=== PATIENT | female | born 1955 | race Two or more races ===

== ENCOUNTER 2017-06-15 17:15 | Emergency (ER) | payer SELFPAY ==
[2017-06-15] MEDS ORDERED: ONDANSETRON 4 MG TAB.RAPDIS PO ONE (17:32)
--- NOTE | 2017-06-15 17:35 | ER Document Report ---
ED Medical Screen (RME) - General Chief Complaint: Abdominal Pain Stated Complaint: NAUSEA Time Seen by Provider: 06/15/17 17:28 Notes: The patient is a 61-year-old female, recently diagnosed with left inguinal hernia, diverticulitis and cholelithiasis and in the ER in [place] 3 days ago, presents with worsening left lower quadrant abdominal pain and nausea. She was taking Phenergan and tramadol and said that they were helping, but she ran out. She has now moved to [place] [employer], but has not established follow-up at surgery yet. PE: Tachycardia, mild distress, LLQ abdominal pain, unable to assess inguinal hernia in [place] I have greeted and performed a rapid initial assessment of this patient. A comprehensive ED assessment and evaluation of the patient, analysis of test results and completion of the medical decision making process will be conducted by additional ED providers. TRAVEL OUTSIDE OF THE [place] IN LAST 30 DAYS: No - Related Data Allergies/Adverse Reactions: hydrocodone Allergy (Verified 06/15/17 17:24) Facial swelling catrina Allergy (Verified 06/15/17 17:24) throat swelling Home Medications: Current Home Medications Aspirin [Aspirin 81 mg Chewable Tablet] 81 mg PO DAILY 06/15/17 [History] [place] Carbonate 300 mg PO DAILY 06/15/17 [History] Promethazine HCl [Phenadoz] 25 mg RC PRN PRN 06/15/17 [History] Risperidone [Risperdal] 3 mg PO QPM 06/15/17 [History] Tramadol HCl 50 mg PO PRN PRN 06/15/17 [History] Past Medical History Renal/ Medical History: Denies: Hx Peritoneal Dialysis Physical Exam - Vital signs Vitals: Temp Pulse Resp BP Pulse Ox 97.9 F 113 H 18 160/90 H 96 06/15/17 17:20 06/15/17 17:20 06/15/17 17:20 06/15/17 17:20 06/15/17 17:20 Course - Vital Signs Vital signs: Temp Pulse Resp BP Pulse Ox 97.9 F 113 H 18 160/90 H 96 06/15/17 17:20 06/15/17 17:20 06/15/17 17:20 06/15/17 17:20 06/15/17 17:20
[2017-06-15 18:03] LABS: ABSOLUTE BASOPHILS # (AUTO) 0.1 10^3/uL (0.0-0.2); ABSOLUTE EOSINOPHILS # (AUTO) 0.1 10^3/uL (0.0-0.6); ABSOLUTE LYMPHOCYTES (AUTO) 1.6 10^3/uL (0.5-4.7); ABSOLUTE MONOCYTES (AUTO) 0.4 10^3/uL (0.1-1.4); ABSOLUTE NEUT (AUTO) 5.3 10^3/uL (1.7-8.2); BASOPHILS % (AUTO) 1.2 % (0-2); EOSINOPHILS % (AUTO) 1.4 % (0-6); HEMATOCRIT 36.9 % (36.0-47.0); HEMOGLOBIN 12.5 g/dL (12.0-15.5); HGB HCT DIFFERENCE 0.6; LYMPHOCYTES % (AUTO) 21.6 % (13-45); MEAN CORPUSCULAR HEMOGLOBIN 28.9 pg (27.0-33.4); MEAN CORPUSCULAR HGB CONC 33.9 g/dL (32.0-36.0); MEAN CORPUSCULAR VOLUME 85 fl (80-97); MONOCYTES % (AUTO) 5.4 % (3-13); RED BLOOD COUNT 4.33 10^6/uL (3.72-5.28); RED CELL DISTRIBUTION WIDTH 14.1 % (11.5-14.0); SEGMENTED NEUTROPHILS % (AUTO) 70.4 % (42-78); WHITE BLOOD COUNT 7.5 10^3/uL (4.0-10.5)
[2017-06-15 18:10] LABS: APPEARANCE,URINE CLEAR; BILIRUBIN,URINE NEGATIVE (NEGATIVE); GLUCOSE, URINE NEGATIVE (NEGATIVE); KETONES,URINE NEGATIVE (NEGATIVE); LEUKOCYTE ESTERASE,URINE NEGATIVE (NEGATIVE); NITRITE,URINE NEGATIVE (NEGATIVE); PROTEIN,URINE NEGATIVE (NEGATIVE); URINE SPECIFIC GRAVITY 1.003; UROBILINOGEN,URINE NEGATIVE mg/dL (<2.0)
[2017-06-15] MEDS ORDERED: OXYCODONE-ACETAMINOPHEN 5-325 MG TABLET PO ONE (18:20)
[2017-06-15 18:23] LABS: ALANINE AMINOTRANSFERASE 40 U/L (9-52); ALBUMIN 4.2 g/dL (3.5-5.0); ALKALINE PHOSPHATASE 110 U/L (38-126); ANION GAP 13 (5-19); ASPARTATE AMINO TRANSFERASE 37 U/L (14-36); BILIRUBIN,DIRECT 0.4 mg/dL (0.0-0.4); BILIRUBIN,TOTAL 0.5 mg/dL (0.2-1.3); BLOOD UREA NITROGEN 7 mg/dL (7-20); CALCIUM 10.5 mg/dL (8.4-10.2); CARBON DIOXIDE 23 mmol/L (22-30); CHLORIDE 103 mmol/L (98-107); CREATININE RESULT 0.64 mg/dL (0.52-1.25); GLUCOSE 153 mg/dL (75-110); LIPASE 85.9 U/L (23-300); POTASSIUM 3.5 mmol/L (3.6-5.0); SODIUM 138.7 mmol/L (137-145); TOTAL PROTEIN 7.2 g/dL (6.3-8.2)
--- NOTE | 2017-06-15 18:25 | ER Document Report ---
ED General - General Chief Complaint: Abdominal Pain Stated Complaint: NAUSEA Time Seen by Provider: 06/15/17 17:28 Mode of Arrival: Ambulatory Information source: Patient Notes: 61-year-old female who was diagnosed with gallbladder disease last week in [place] as well as a history of right flank pain presents with complaints of generalized abd pain . pt denies any fevers or chills, denies any constipation. TRAVEL OUTSIDE OF THE [place] IN LAST 30 DAYS: No - HPI Onset: Last week Onset/Duration: Persistent Quality of pain: Achy Severity: Mild Pain Level: 1 Associated symptoms: Nausea Exacerbated by: Denies Relieved by: Denies Similar symptoms previously: No Recently seen / treated by doctor: No - Related Data Allergies/Adverse Reactions: hydrocodone Allergy (Verified 06/15/17 17:24) Facial swelling catrina Allergy (Verified 06/15/17 17:24) throat swelling Home Medications: Current Home Medications Aspirin [Aspirin 81 mg Chewable Tablet] 81 mg PO DAILY 06/15/17 [History] [place] Carbonate 300 mg PO DAILY 06/15/17 [History] Promethazine HCl [Phenadoz] 25 mg RC PRN PRN 06/15/17 [History] Risperidone [Risperdal] 3 mg PO QPM 06/15/17 [History] Tramadol HCl 50 mg PO PRN PRN 06/15/17 [History] Past Medical History - Social History Smoking Status: Never Smoker Cigarette use (# per day): No Chew tobacco use (# tins/day): No Smoking Education Provided: No Family History: Reviewed & Not Pertinent Renal/ Medical History: Denies: Hx Peritoneal Dialysis Review of Systems - Review of Systems Notes: REVIEW OF SYSTEMS: CONSTITUTIONAL : Denies fever, chills, or sweats. Denies recent illness. EENT: Denies eye, ear, throat, or mouth pain or symptoms. Denies nasal or sinus congestion or discharge. Denies throat, tongue, or mouth swelling or difficulty swallowing. CARDIOVASCULAR: Denies chest pain. Denies palpitations or racing or irregular heart beat. Denies ankle edema. RESPIRATORY: Denies cough, cold, or chest congestion. Denies shortness of breath, difficulty breathing, or wheezing. GASTROINTESTINAL: admits to nausea vomiting, abd pain pain GENITOURINARY: Denies difficulty urinating, painful urination, burning, frequency, blood in urine, or discharge. FEMALE GENITOURINARY: Denies vaginal bleeding, heavy or abnormal periods, irregular periods. Denies vaginal discharge or odor. MUSCULOSKELETAL: Denies back or neck pain or stiffness. Denies joint pain or swelling. SKIN: Denies rash, lesions or sores. HEMATOLOGIC : Denies easy bruising or bleeding. LYMPHATIC: Denies swollen, enlarged glands. NEUROLOGICAL: Denies confusion or altered mental status. Denies passing out or loss of consciousness. Denies dizziness or lightheadedness. Denies headache. Denies weakness or paralysis or loss of use of either side. Denies problems with gait or speech. Denies sensory loss, numbness, or tingling. Denies seizures. PSYCHIATRIC: Denies anxiety or stress. Denies depression, suicidal ideation, or homicidal ideation. ALL OTHER SYSTEMS REVIEWED AND NEGATIVE. PHYSICAL EXAMINATION: GENERAL: Well-appearing, well-nourished and in no acute distress. HEAD: Atraumatic, normocephalic. EYES: Pupils equal round and reactive to light, extraocular movements intact, conjunctiva are normal. ENT: Nares patent, oropharynx clear without exudates. Moist mucous membranes. NECK: Normal range of motion, supple without lymphadenopathy LUNGS: Breath sounds clear to auscultation bilaterally and equal. No wheezes rales or rhonchi. HEART: Regular rate and rhythm without murmurs ABDOMEN: Soft, nontender, nondistended abdomen. No guarding, no rebound. Right inguinal hernia Female : deferred Musculoskeletal: Normal range of motion, no pitting or edema. No cyanosis. NEUROLOGICAL: Cranial nerves grossly intact. Normal speech, normal gait. Normal sensory, motor exams PSYCH: Normal mood, normal affect. SKIN: Warm, Dry, normal turgor, no rashes or lesions noted. Dictation was performed using [employer] voice recognition software Physical Exam - Vital signs Vitals: Temp Pulse Resp BP Pulse Ox 97.9 F 113 H 18 160/90 H 96 06/15/17 17:20 06/15/17 17:20 06/15/17 17:20 06/15/17 17:20 06/15/17 17:20 Course - Re-evaluation Re-evalutation: 06/15/17 18:24 Patient has very benign presentation, she is supposed to follow-up with surgery. Denies any fevers or chills 06/15/17 19:39 Labwork imaging noted no abnormality. Patient is stable at this time Patient will be given surgery follow-up After performing a Medical Screening Examination, I estimate there is LOW risk for ACUTE APPENDICITIS, BOWEL OBSTRUCTION, ACUTE CHOLECYSTITIS, PERFORATED DIVERTICULITIS, INCARCERATED HERNIA, PANCREATITIS, PELVIC INFLAMMATORY DISEASE, PERFORATED ULCER, ECTOPIC , or TUBO-OVARIAN ABSCESS, thus I consider the discharge disposition reasonable. Also, there is no evidence or peritonitis , sepsis, or toxicity. I have reevaluated this patient multiple times and no significant life threatening changes are noted. The patient and I have discussed the diagnosis and risks, and we agree with discharging home with close follow-up with the understanding that symptoms and presentations can change. We also discussed returning to the Emergency Department immediately if new or worsening symptoms occur. We have discussed the symptoms which are most concerning (e.g., bloody stool, fever, changing or worsening pain, vomiting) that necessitate immediate return. - Vital Signs Vital signs: Temp Pulse Resp BP Pulse Ox 97.9 F 113 H 18 160/90 H 96 06/15/17 17:20 06/15/17 17:20 06/15/17 19:29 06/15/17 17:20 06/15/17 17:20 - Laboratory Result Diagrams: 06/15/17 17:50 06/15/17 17:50 Laboratory results interpreted by me: 06/15/17 06/15/17 06/15/17 17:45 17:50 17:50 RDW 14.1 H Potassium 3.5 L Glucose 153 H Calcium 10.5 H AST 37 H Urine Blood SMALL H - Diagnostic Test Radiology reviewed: Image reviewed, Reports reviewed - no Acute abnormality Discharge - Discharge Clinical Impression: Abdominal pain Qualifiers: Abdominal location: generalized Qualified Code(s): R10.84 - Generalized abdominal pain Inguinal hernia Qualifiers: Obstruction and gangrene presence: without obstruction or gangrene Laterality: unilateral Recurrence: recurrent Qualified Code(s): K40.91 - Unilateral inguinal hernia, without obstruction or gangrene, recurrent Condition: Stable Disposition: HOME, SELF-CARE Instructions: Abdominal Pain ([facility]) Prescriptions: Tramadol HCl 50 mg PO Q8 #20 tablet Referrals: MEMO SUAREZ MD [ACTIVE STAFF] - Follow up tomorrow
[2017-06-15] MEDS ORDERED: TRAMADOL HCL 50 MG TABLET PO ONE (18:31)
--- NOTE | 2017-06-15 19:19 | RADIOLOGY REPORT (SQ) ---
EXAM DESCRIPTION: ACUTE ABDOMEN SERIES COMPLETED DATE/TIME: 06/15/2017 7:10 pm REASON FOR STUDY: right inguinal hernia COMPARISON: None. NUMBER OF VIEWS: Three views. TECHNIQUE: Frontal chest, supine abdomen and upright/decubitus abdomen radiographic images acquired. LIMITATIONS: None. FINDINGS: CHEST: Lungs clear of infiltrates. FREE AIR: None. No abnormal gas collections. BOWEL GAS PATTERN: Nonobstructive pattern. No dilated loops or air fluid levels. CALCIFICATIONS: No suspicious calcifications. HARDWARE: None in the abdomen. SOFT TISSUES: No gross mass or suggestion of organomegaly. BONES: No acute fracture. No worrisome bone lesions. OTHER: No other significant finding. IMPRESSION: NO RADIOGRAPHIC EVIDENCE FOR ACUTE ABDOMINAL DISEASE. TECHNICAL DOCUMENTATION: JOB ID: [id number] [employer]- All Rights Reserved
[2017-06-15 19:47] VITALS: BP 110/78
== END 2017-06-15 19:57 | disposition home or self-care (01) ==
LOC: ER 17:15
DX: K40.91 Unilateral inguinal hernia, without obstruction or gangrene, recurrent (principal); R10.84 Generalized abdominal pain
CPT/HCPCS: 99284; 36415; 83690; 85025; 80053; 81001; 74022; S0119

== ENCOUNTER 2017-06-23 17:02 | Emergency (ER) | payer SELFPAY ==
--- NOTE | 2017-06-23 17:33 | ER Document Report ---
ED GI/ - General Chief Complaint: Groin Pain Stated Complaint: PAIN IN GROIN AREA Time Seen by Provider: 06/23/17 17:18 Notes: Patient is a 61-year-old female who presents emergency department complaining of hernia pain. Patient states that she was seen in [facility] in March and told that she had a hernia near her vagina. Patient states that she has intermittent pain. Has been taking tramadol at home. Denies any nausea, vomiting, diarrhea, constipation. She states that the hernia is reducible. TRAVEL OUTSIDE OF THE [place] IN LAST 30 DAYS: No - Related Data Allergies/Adverse Reactions: hydrocodone Allergy (Verified 06/23/17 17:10) Facial swelling catrina Allergy (Verified 06/23/17 17:10) throat swelling Past Medical History - Social History Smoking Status: Unknown if Ever Smoked Family History: Reviewed & Not Pertinent Patient has suicidal ideation: No Patient has homicidal ideation: No Renal/ Medical History: Denies: Hx Peritoneal Dialysis Psychiatric Medical History: Reports: Hx Bipolar Disorder Review of Systems - Review of Systems Constitutional: No symptoms reported Gastrointestinal: See HPI -: Yes All other systems reviewed and negative Physical Exam - Vital signs Vitals: Temp Pulse BP Pulse Ox 98.4 F 73 111/59 L 94 06/23/17 17:09 06/23/17 17:09 06/23/17 17:09 06/23/17 17:09 - Notes Notes: PHYSICAL EXAM GENERAL: Alert, interacts well. HEAD: Normocephalic, atraumatic. EYES: Pupils equal, round, and reactive to light. Extraocular movements intact. ENT: Oral mucosa moist, tongue midline. NECK: Full range of motion. Supple. Trachea midline. LUNGS: Clear to auscultation bilaterally, no wheezes, rales, or rhonchi. No respiratory distress. HEART: Regular rate and rhythm. No murmurs, gallops, or rubs. ABDOMEN: Soft, nondistended, nontender. No guarding, rebound, or rigidity.. Bowel sounds present in all 4 quadrants. No evidence of umbilical, inguinal, femoral hernia. Patient pointing to right inguinal canal in terms of pain where she states it is normally where the bump is but no palpable hernia. No concern for incarcerated hernia EXTREMITIES: Moves all 4 extremities spontaneously. No edema, radial and dorsalis pedis pulses 2/4 bilaterally. No cyanosis. NEUROLOGICAL: Alert and oriented x4. Normal speech. PSYCH: Normal affect, normal mood. SKIN: Warm, dry, normal turgor. No rashes or lesions noted. Course - Re-evaluation Re-evalutation: 06/23/17 18:39 Patient is a 61-year-old female is hemodynamic stable, no acute distress afebrile. No concerns for incarcerated hernia at this time. Patient's physical exam is benign for any acute abdominal process. Stable for discharge home and referral to surgery After performing a Medical Screening Examination, I estimate there is LOW risk for ACUTE APPENDICITIS, BOWEL OBSTRUCTION, ACUTE CHOLECYSTITIS, PERFORATED DIVERTICULITIS, INCARCERATED HERNIA, PANCREATITIS, PELVIC INFLAMMATORY DISEASE, PERFORATED ULCER, ECTOPIC , or TUBO-OVARIAN ABSCESS, thus I consider the discharge disposition reasonable. Also, there is no evidence or peritonitis , sepsis, or toxicity. I have reevaluated this patient multiple times and no significant life threatening changes are noted. The patient and I have discussed the diagnosis and risks, and we agree with discharging home with close follow-up with the understanding that symptoms and presentations can change. We also discussed returning to the Emergency Department immediately if new or worsening symptoms occur. We have discussed the symptoms which are most concerning (e.g., bloody stool, fever, changing or worsening pain, vomiting) that necessitate immediate return. - Vital Signs Vital signs: Temp Pulse Resp BP Pulse Ox 98.4 F 68 16 111/61 98 06/23/17 17:37 06/23/17 17:37 06/23/17 17:37 06/23/17 17:37 06/23/17 17:37 Discharge - Discharge Clinical Impression: Groin pain Qualifiers: Laterality: right Qualified Code(s): R10.31 - Right lower quadrant pain Condition: Good Disposition: HOME, SELF-CARE Instructions: Hernia ([facility]) Prescriptions: Ondansetron HCl [Zofran 4 mg Tablet] 1 - 2 tab PO Q4H PRN #10 tablet PRN Reason: Referrals: MEMO SUAREZ MD [ACTIVE STAFF] - Follow up in 1 week
[2017-06-23 17:42] VITALS: BP 111/61
== END 2017-06-23 17:40 | disposition home or self-care (01) ==
LOC: ER 17:02
DX: R10.31 Right lower quadrant pain (principal); Z88.5 Allergy status to narcotic agent; Z91.018 Allergy to other foods
CPT/HCPCS: 99283

== ENCOUNTER → 2017-08-15 | Outpatient (CLI) | payer OTHER ==
[2017-08-15 09:39] LABS: ALANINE AMINOTRANSFERASE 36 U/L (9-52); ALBUMIN 4.4 g/dL (3.5-5.0); ALKALINE PHOSPHATASE 104 U/L (38-126); ANION GAP 11 (5-19); ASPARTATE AMINO TRANSFERASE 22 U/L (14-36); BILIRUBIN,DIRECT 0.4 mg/dL (0.0-0.4); BILIRUBIN,TOTAL 0.8 mg/dL (0.2-1.3); BLOOD UREA NITROGEN 15 mg/dL (7-20); CALCIUM 10.4 mg/dL (8.4-10.2); CARBON DIOXIDE 25 mmol/L (22-30); CHLORIDE 109 mmol/L (98-107); CHOLESTEROL 264.92 mg/dL (0-200); CREATININE RESULT 0.75 mg/dL (0.52-1.25); Direct HDL 47 mg/dL (>40); GLUCOSE 143 mg/dL (75-110); POTASSIUM 4.3 mmol/L (3.6-5.0); SODIUM 145.4 mmol/L (137-145); TOTAL PROTEIN 7.4 g/dL (6.3-8.2); TRIGLYCERIDES 161 mg/dL (<150)
[2017-08-15 09:50] LABS: DIRECT LDL 191 mg/dL (<100)
[2017-08-15 09:53] LABS: VLDL CHOLESTEROL 32.2 mg/dL (10-31)
== END ==
LOC: OD 08:29
DX: K80.71 Calculus of gallbladder and bile duct without cholecystitis with obstruction (principal)
CPT/HCPCS: 36415; 80053; 80061; 83036; 84436

== ENCOUNTER → 2017-08-21 | Outpatient (CLI) | payer OTHER ==
--- NOTE | 2017-08-21 15:11 | WOMENS IMAGING REPORT ---
EXAM DESCRIPTION: BILAT SCREENING MAMMO W/CAD COMPLETED DATE/TIME: 08/21/2017 2:55 pm REASON FOR STUDY: SCREENING MAMMO Z12.31 ENCNTR SCREEN MAMMOGRAM FOR MALIGNANT NEOPLASM OF CHRISTIAN K80. 71 CALCULUS OF GB AND BILE DUCT W/O CHOLECYST W OBSTRUCT COMPARISON: None. TECHNIQUE: Standard craniocaudal and mediolateral oblique views of each breast recorded using digita l acquisition. LIMITATIONS: None. FINDINGS: RIGHT BREAST MASSES: Several circumscribed masses in the upper-outer breast generally similar in size and appearan ce, possibly lymph nodes. In the retroareolar breast there is an oval mass located 3 cm from the nip ple, partially obscured by parenchyma. CALCIFICATIONS: No new or suspicious calcifications. ARCHITECTURAL DISTORTION: None. DEVELOPING DENSITY: None. ASYMMETRY: None noted. OTHER: No other significant findings. LEFT BREAST MASSES: Several circumscribed masses in the upper-outer breast generally similar in size in appearanc e, possibly lymph nodes. CALCIFICATIONS: No new or suspicious calcifications. ARCHITECTURAL DISTORTION: Area of possible architectural distortion in the superior breast, most appa rent on the MLO view, located 5.5 cm from the nipple. DEVELOPING DENSITY: None. ASYMMETRY: None noted. OTHER: No other significant findings. Read with the assistance of CAD. .[facility] - R2 Cenova Version 1.3 .[facility] Imaging - R2 Cenova Version 1.3 .[facility] Imaging - R2 Cenova Version 2.4 .[facility] [place] - R2 Cenova Version 2.4 .[facility] - R2 [employer] Winding Machine Tender Version 9.2 IMPRESSION: Oval mass in the right breast. Possible area of architectural distortion in the left br east. BREAST DENSITY: b. There are scattered areas of fibroglandular density. BIRAD: 0 Incomplete: Needs Additional Imaging Evaluation and/or prior Mammograms for Comparison. RECOMMENDATION: RECOMMENDED FOLLOW-UP: Recommend additional evaluation with breast tomosynthesis (pr eferred) or compression views of both breasts and ultrasound of both breasts. The patient will be contacted for additional imaging. COMMENT: The patient has been notified of the results by letter per [place] requirements. Additional no tification policies are in place for contacting patient with suspicious or incomplete findings. Quality ID #[id number]: The [employer] recommends an annual screening mammogram for women aged 40 years or over. This facility utilizes a reminder system to ensure that all patients receive reminder letters, and/or direct phone calls for appointments. This includes reminders for routine scr eening mammograms, diagnostic mammograms, or other Breast Imaging Interventions when appropriate. Th is patient will be placed in the appropriate reminder system. The [employer] (ACR) has developed recommendations for screening MRI of the breast s in certain patient populations, to be used in conjunction with mammography. Breast MRI surveillanc e may be appropriate for women with more than 20% lifetime risk of developing breast cancer as deter mined by genetic testing, significant family history of the disease, or history of mantle radiation f or Hodgkins Disease. ACR Practice Guidelines 2008. TECHNICAL DOCUMENTATION: FINDING NUMBER: (1) ASSESSMENT: (1) JOB ID: [id number] [employer]- All Rights Reserved
== END ==
LOC: WI 13:29
DX: Z12.31 Encounter for screening mammogram for malignant neoplasm of breast (principal)
CPT/HCPCS: 77067; G0202

== ENCOUNTER → 2017-11-20 | Outpatient (CLI) | payer OTHER ==
--- NOTE | 2017-11-20 11:57 | WOMENS IMAGING REPORT ---
EXAM DESCRIPTION: BILAT DIAGNOSTIC MAMMO W/CAD; U/S BREAST UNILAT LIMITED COMPLETED DATE/TIME: 11/20/2017 9:40 am; 11/20/2017 11:30 am REASON FOR STUDY: LUMP IN RIGHT BREAST AND LEFT BREAST N63.0; BILATERAL BREAST N63.0 N63.10 UNSPECI FIED LUMP IN THE RIGHT BREAST, UNSPECIFIED DIANA N63.20 UNSPECIFIED LUMP IN THE LEFT BREAST, UNSPECIFI ED QUAD COMPARISON: 08/21/2017. TECHNIQUE: Additional true lateral and spot compression MLO and CC images of both breasts. LIMITATIONS: None. FINDINGS: RIGHT BREAST MASSES: Several scattered circumscribed masses. CALCIFICATIONS: No new or suspicious calcifications. ARCHITECTURAL DISTORTION: None. DEVELOPING DENSITY: None. ASYMMETRY: None noted. OTHER: No other significant findings. LEFT BREAST MASSES: Several scattered circumscribed masses. CALCIFICATIONS: No new or suspicious calcifications. ARCHITECTURAL DISTORTION: None. DEVELOPING DENSITY: None. ASYMMETRY: None noted. OTHER: No other significant findings. BREAST ULTRASOUND: TECHNIQUE: Static and dynamic grayscale images acquired of the right and left breast in the specific areas of clinical/mammographic concern. Selected color Doppler images recorded. ELASTOGRAPHY PERFORMED: No. LIMITATIONS: None. FINDINGS: MASS: There are several anechoic cysts in both breasts. Also a few small, 3 to 7 mm, circumscribed l ymph nodes. No suspicious solid lesions. ELASTOGRAPHY CHARACTERISTICS: Not applicable. OTHER: No other significant finding. IMPRESSION: Several circumscribed masses in both breasts. Ultrasound demonstrates scattered small c ysts and small lymph nodes. No suspicious mammographic or sonographic characteristics. BREAST DENSITY: b. There are scattered areas of fibroglandular density. BIRAD: 2 Benign findings. RECOMMENDATION: RECOMMENDED FOLLOW UP: Birads 1 or 2: The patient should resume routine screening . SPECIFIC INTERVENTION/IMAGING/CONSULTATION RECOMMENDED:No additional intervention/ imaging/consultati on needed at this time. COMMUNICATION:The imaging findings were not discussed with the patient. Her referring provider has be en notified of the findings. COMMENT: The patient has been notified of the results by letter per MQSA requirements. Additional no tification policies are in place for contacting patient with suspicious or incomplete findings. Quality ID #[id number]: The [employer] recommends an annual screening mammogram for women aged 40 years or over. This facility utilizes a reminder system to ensure that all patients receive reminder letters, and/or direct phone calls for appointments. This includes reminders for routine scr eening mammograms, diagnostic mammograms, or other Breast Imaging Interventions when appropriate. Th is patient will be placed in the appropriate reminder system. The [employer] (ACR) has developed recommendations for screening MRI of the breast s in certain patient populations, to be used in conjunction with mammography. Breast MRI surveillanc e may be appropriate for women with more than 20% lifetime risk of developing breast cancer as deter mined by genetic testing, significant family history of the disease, or history of mantle radiation f or Hodgkins Disease. ACR Practice Guidelines 2008. TECHNICAL DOCUMENTATION: FINDING NUMBER: (1) ASSESSMENT: (1) JOB ID: [id number] [employer]- All Rights Reserved
== END ==
LOC: WI 08:08
DX: N60.02 Solitary cyst of left breast (principal); N60.01 Solitary cyst of right breast
CPT/HCPCS: 76642; 77066

== ENCOUNTER → 2018-06-18 | Outpatient (CLI) | payer OTHER ==
--- NOTE | 2018-06-18 11:11 | RADIOLOGY REPORT (SQ) ---
EXAM DESCRIPTION: U/S ABDOMEN LIMITED W/O DOP COMPLETED DATE/TIME: 06/18/2018 9:40 am REASON FOR STUDY: TOXIC LIVER DISEASE W/ CHOLESTASIS K71.0 TOXIC LIVER DISEASE WITH CHOLESTASIS COMPARISON: None. TECHNIQUE: Dynamic and static grayscale images acquired of the abdomen and recorded on PACS. Additio nal selected color Doppler and spectral images recorded. LIMITATIONS: None. FINDINGS: PANCREAS: No masses. Visualized pancreatic duct normal caliber. LIVER: Right lobe is elongated. No hepatic mass. Normal echotexture. LIVER VASCULATURE: Normal directional flow of the main portal vein and hepatic veins. GALLBLADDER: Contracted gallbladder with large gallstones. ULTRASOUND-DETECTED ROBINS'S SIGN: Negative. INTRAHEPATIC DUCTS AND COMMON DUCT: Common bile duct is borderline at 6.1 mm. INFERIOR VENA CAVA: Normal flow. AORTA: No aneurysm. RIGHT KIDNEY: Normal size. Normal echogenicity. No solid or suspicious masses. No hydronephrosis. No calcifications. PERITONEAL AND RIGHT PLEURAL SPACE: No ascites or effusions. OTHER: A right inguinal hernia was noted. IMPRESSION: Angie's lobe in the liver. Cholelithiasis. Borderline common bile duct. Right inguin al hernia. TECHNICAL DOCUMENTATION: JOB ID: [id number] [employer]- All Rights Reserved Reading location - IP/workstation name: [email or web address]
== END ==
LOC: RAD 08:29
PROVIDERS: ATTEND Family Medicine
DX: K71.0 Toxic liver disease with cholestasis (principal)
CPT/HCPCS: 76705

== ENCOUNTER → 2020-08-28 | Outpatient (CLI) | payer OTHER | LOC: CCC 10:39 | PROVIDERS: ATTEND Family Medicine | DX: Z13.9 Encounter for screening, unspecified (principal) | CPT/HCPCS: 36415; 84075 ==

== ENCOUNTER → 2020-09-11 | Outpatient (CLI) | payer OTHER ==
[2020-09-11 15:01] LABS: ALBUMIN 4.4 g/dL (3.5-5.0); ALKALINE PHOSPHATASE 340 U/L (38-126); ANION GAP 13 (5-19); ASPARTATE AMINO TRANSFERASE 77 U/L (14-36); BILIRUBIN,DIRECT 0.2 mg/dL (0.0-0.4); BLOOD UREA NITROGEN 11 mg/dL (7-20); CALCIUM 10.8 mg/dL (8.4-10.2); CARBON DIOXIDE 22 mmol/L (22-30); CHLORIDE 105 mmol/L (98-107); CHOLESTEROL 146.55 mg/dL (0-200); GLUCOSE 105 mg/dL (75-110); POTASSIUM 4.4 mmol/L (3.6-5.0); TOTAL PROTEIN 7.7 g/dL (6.3-8.2); TRIGLYCERIDES 137 mg/dL (<150)
[2020-09-11 15:13] LABS: DIRECT LDL 62 mg/dL (<100)
== END ==
LOC: CCC 12:45
PROVIDERS: ATTEND Family Medicine
DX: K80.71 Calculus of gallbladder and bile duct without cholecystitis with obstruction (principal)
CPT/HCPCS: 36415; 80053; 80061; 83036; 84436

== ENCOUNTER → 2020-09-11 | Outpatient (CLI) | payer OTHER ==
--- NOTE | 2020-09-11 10:59 | RADIOLOGY REPORT (SQ) ---
EXAM DESCRIPTION: U/S ABDOMEN LIMITED W/O DOP IMAGES COMPLETED DATE/TIME: 09/11/2020 9:12 am REASON FOR STUDY: K71.0 TOXIC LIVER DISEASE WITH CHOLESTASIS K71.0 TOXIC LIVER DISEASE WITH CHOLEST ASIS COMPARISON: Ultrasound of the abdomen from 06/18/2018. TECHNIQUE: Dynamic and static grayscale images acquired of the abdomen and recorded on PACS. Additio nal selected color Doppler and spectral images recorded. LIMITATIONS: None. FINDINGS: PANCREAS: The visualized portions of the pancreas appear normal. LIVER: Normal contour and echotexture of the liver. LIVER VASCULATURE: Normal hepatopetal directional flow in the portal vein. GALLBLADDER: The gallbladder is contracted and filled with calculi. The gallbladder wall measures 3 mm in thickness. There is no pericholecystic fluid. ULTRASOUND-DETECTED ROBINS'S SIGN: Negative. INTRAHEPATIC DUCTS AND COMMON DUCT: The common bile duct measures 8 mm in diameter. There is no dila tation of the intrahepatic ducts. INFERIOR VENA CAVA: Not assessed. AORTA: Not assessed. RIGHT KIDNEY: The right kidney measures 10.9 cm in length. There is no hydronephrosis. PERITONEAL AND RIGHT PLEURAL SPACE: No ascites or effusions. OTHER: No other findings. IMPRESSION: 1. Cholelithiasis. 2. The common bile duct measures 8 mm in diameter. There is no associated dilatation of the intrahe patic ducts. TECHNICAL DOCUMENTATION: JOB ID: [id number] [employer]- All Rights Reserved Reading location - IP/workstation name: [email or web address]
== END ==
LOC: WI 08:42
PROVIDERS: ATTEND Family Medicine
DX: K71.0 Toxic liver disease with cholestasis (principal); K80.20 Calculus of gallbladder without cholecystitis without obstruction
CPT/HCPCS: 76705

== ENCOUNTER → 2020-09-28 | Outpatient (CLI) | payer OTHER | LOC: OD 10:17 | PROVIDERS: ATTEND Family Medicine | DX: R74.8 Abnormal levels of other serum enzymes (principal) | CPT/HCPCS: 36415; 86021; 86038 ==